=== PATIENT | female | born 1950 | race Caucasian/White ===

== ENCOUNTER 2024-04-19 01:14 | Outpatient (RCR) | payer MEDICARE, OTHER, SELFPAY ==
[2024-03-27] MEDS: Normal Saline Flush 10 ML SYR IVP (08:01)
[2024-03-27 08:27] LABS: Abs Immature Grans 0.11 10^3/uL (0.0-0.06); Absolute Basophil Count 0.07 10^3/uL (0.0-0.2); Absolute Eosinophil Count 0.16 10^3/uL (0.0-0.7); Absolute Lymphocyte Count 1.57 10^3/uL (1.2-3.4); Absolute Monocyte Count 0.67 10^3/uL (0.1-0.8); Absolute Neutrophil Count 5.27 10^3/uL (1.2-6.7); Basophils % 0.9 %; HCT 32.1 % (36.0-46.0); HGB 10.5 g/dL (11.2-15.7); Immature Grans % 1.4 %; MCH 30.1 pg (27.0-33.0); MCHC 32.7 % (32.0-36.0); MCV 92 fL (80-95); MPV 9.4 fL (8.0-11.0); Monocytes % 8.5 %; Neutrophils % 67.2 %; Platelet Count 302 10^3/uL (130-400); RBC 3.49 10^6/uL (3.93-5.22); RDW 13.4 % (11.7-14.6); RDW-SD 45.1 fL; WBC 7.85 10^3/uL (4.4-10.8)
[2024-03-27 09:06] LABS: ALT 41 U/L (14-59); AST 25 U/L (15-37); Albumin 2.9 g/dL (3.4-5.0); Alkaline Phosphatase 321 U/L (46-116); Anion Gap 5.9 mmol/L (3-11); BUN 12 mg/dL (7-18); Bilirubin, Total 0.5 mg/dL (0.2-1.0); CO2 29.1 mmol/L (21.0-32.0); CREATININE 0.9 mg/dL (0.55-1.02); Calcium 9.3 mg/dL (8.5-10.1); Chloride 103 mmol/L (98-107); Estimated GFR 67.92 (mL/min/1.73m2); Glucose 125 mg/dL (74-106); Potassium 4.2 mmol/L (3.5-5.1); Sodium 138 mmol/L (136-145); Total Protein 6.9 g/dL (6.4-8.2); Vitamin B12 1451 pg/mL (193-986)
[2024-03-27 22:31] LABS: CA 19-9 378 U/mL (<35)
[2024-03-29] MEDS: Normal Saline Flush 10 ML SYR IVP (12:11)
[2024-04-10] MEDS: Normal Saline Flush 10 ML SYR IVP (07:52)
[2024-04-10 08:34] LABS: Abs Immature Grans 0.01 10^3/uL (0.0-0.06); Absolute Basophil Count 0.02 10^3/uL (0.0-0.2); Absolute Eosinophil Count 0.24 10^3/uL (0.0-0.7); Absolute Lymphocyte Count 0.89 10^3/uL (1.2-3.4); Absolute Monocyte Count 0.38 10^3/uL (0.1-0.8); Absolute Neutrophil Count 1.48 10^3/uL (1.2-6.7); Basophils % 0.7 %; Eosinophils % 7.9 %; HCT 29.5 % (36.0-46.0); HGB 9.8 g/dL (11.2-15.7); Immature Grans % 0.3 %; Lymphocytes % 29.5 %; MCH 30.3 pg (27.0-33.0); MCHC 33.2 % (32.0-36.0); MCV 91 fL (80-95); MPV 10.3 fL (8.0-11.0); Monocytes % 12.6 %; Platelet Count 158 10^3/uL (130-400); RBC 3.23 10^6/uL (3.93-5.22); RDW 14.1 % (11.7-14.6); RDW-SD 46.1 fL; WBC 3.02 10^3/uL (4.4-10.8)
[2024-04-10 08:48] LABS: ALT 41 U/L (14-59); AST 20 U/L (15-37); Alkaline Phosphatase 180 U/L (46-116); Anion Gap 6.2 mmol/L (3-11); BUN 9 mg/dL (7-18); Bilirubin, Total 0.45 mg/dL (0.2-1.0); CO2 28.8 mmol/L (21.0-32.0); CREATININE 0.9 mg/dL (0.55-1.02); Calcium 9.1 mg/dL (8.5-10.1); Chloride 106 mmol/L (98-107); Glucose 115 mg/dL (74-106); Potassium 3.7 mmol/L (3.5-5.1); Sodium 141 mmol/L (136-145); Total Protein 6.4 g/dL (6.4-8.2)
[2024-04-10 20:05] LABS: CA 19-9 80 U/mL (<35)
[2024-04-17] MEDS: Normal Saline Flush 10 ML SYR IVP (08:21)
[2024-04-17 08:47] LABS: Abs Immature Grans 0.02 10^3/uL (0.0-0.06); Absolute Basophil Count 0.07 10^3/uL (0.0-0.2); Absolute Eosinophil Count 0.15 10^3/uL (0.0-0.7); Absolute Lymphocyte Count 1.21 10^3/uL (1.2-3.4); Absolute Monocyte Count 0.74 10^3/uL (0.1-0.8); Absolute Neutrophil Count 1.03 10^3/uL (1.2-6.7); Basophils % 2.2 %; Eosinophils % 4.7 %; HCT 30.6 % (36.0-46.0); HGB 10.1 g/dL (11.2-15.7); Immature Grans % 0.6 %; Lymphocytes % 37.6 %; MCH 30.9 pg (27.0-33.0); MCV 94 fL (80-95); MPV 10.8 fL (8.0-11.0); Neutrophils % 31.9 %; Platelet Count 211 10^3/uL (130-400); RBC 3.27 10^6/uL (3.93-5.22); RDW-SD 51.7 fL; WBC 3.22 10^3/uL (4.4-10.8)
[2024-04-17 09:05] LABS: ALT 28 U/L (14-59); AST 20 U/L (15-37); Alkaline Phosphatase 150 U/L (46-116); Anion Gap 7.1 mmol/L (3-11); BUN 10 mg/dL (7-18); Bilirubin, Total 0.36 mg/dL (0.2-1.0); CO2 28.9 mmol/L (21.0-32.0); CREATININE 0.9 mg/dL (0.55-1.02); Calcium 8.8 mg/dL (8.5-10.1); Chloride 106 mmol/L (98-107); Glucose 103 mg/dL (74-106); Potassium 3.5 mmol/L (3.5-5.1); Sodium 142 mmol/L (136-145); Total Protein 6.4 g/dL (6.4-8.2)
[2024-04-17 22:57] LABS: CA 19-9 45 U/mL (<35)
[2024-04-19] MEDS: Normal Saline Flush 10 ML SYR IVP (13:36)
== END 2024-04-19 23:59 | disposition home or self-care (01) ==
LOC: INF 01:14
PROVIDERS: PCP Family Medicine; Visit Provider Internal Medicine Hematology & Oncology
DX: C25.0 Malignant neoplasm of head of pancreas (principal); Z45.2 Encounter for adjustment and management of vascular access device
CPT/HCPCS: 36591; 80053; 96372; 96523; 82607; 85025; 86301; Q5108

== ENCOUNTER 2024-05-03 14:09 | Outpatient (RCR) | payer MEDICARE, OTHER, SELFPAY | END 2024-05-20 23:59 | disposition home or self-care (01) | LOC: INF 14:09 | PROVIDERS: PCP Family Medicine; Visit Provider Internal Medicine Hematology & Oncology | DX: C25.0 Malignant neoplasm of head of pancreas (principal); Z45.2 Encounter for adjustment and management of vascular access device | CPT/HCPCS: 96372; 96523; Q5108 ==

== ENCOUNTER 2024-05-17 00:16 | Outpatient (RCR) | payer MEDICARE, OTHER, SELFPAY ==
[2024-05-01] MEDS: Normal Saline Flush 10 ML SYR IVP (09:43)
[2024-05-01 09:54] LABS: Abs Immature Grans 0.75 10^3/uL (0.0-0.06); HGB 10.7 g/dL (11.2-15.7); MCH 30.4 pg (27.0-33.0); MCHC 32.4 % (32.0-36.0); MCV 94 fL (80-95); MPV 10.9 fL (8.0-11.0); Platelet Count 142 10^3/uL (130-400); RBC 3.52 10^6/uL (3.93-5.22); RDW 15.4 % (11.7-14.6); RDW-SD 52.4 fL; WBC 8.48 10^3/uL (4.4-10.8)
[2024-05-01 10:11] LABS: ALT 35 U/L (14-59); AST 24 U/L (15-37); Alkaline Phosphatase 160 U/L (46-116); BUN 10 mg/dL (7-18); Bilirubin, Total 0.34 mg/dL (0.2-1.0); CREATININE 0.8 mg/dL (0.55-1.02); Calcium 8.9 mg/dL (8.5-10.1); Chloride 104 mmol/L (98-107); Estimated GFR 77.75 (mL/min/1.73m2); Glucose 87 mg/dL (74-106); Potassium 3.7 mmol/L (3.5-5.1); Sodium 138 mmol/L (136-145); Total Protein 6.5 g/dL (6.4-8.2)
[2024-05-01 10:46] LABS: Absolute Basophil Count 0.08 10^3/uL (0.0-0.2); Absolute Eosinophil Count 0.17 10^3/uL (0.0-0.7); Absolute Lymphocyte Count 2.46 10^3/uL (1.2-3.4); Absolute Monocyte Count 0.59 10^3/uL (0.1-0.8); Absolute Neutrophil Count 4.49 10^3/uL (1.2-6.7); Atypical Lymphocytes % 6 %; Bands % 3 %
[2024-05-01 10:47] LABS: Diff Comment Manual Differential; Metamyelocytes % 4; Myelocytes % 4; Other Cells % 0; Promyelocytes % 0; RBC Morphology Normal
[2024-05-03] MEDS: Normal Saline Flush 10 ML SYR IVP (12:50)
[2024-05-04 10:06] LABS: CA 19-9 27 U/mL (<35)
[2024-05-15] MEDS: Normal Saline Flush 10 ML SYR IVP (09:56)
[2024-05-15 10:00] LABS: Absolute Eosinophil Count 0.13 10^3/uL (0.0-0.7); Absolute Lymphocyte Count 1.88 10^3/uL (1.2-3.4); Absolute Monocyte Count 1.11 10^3/uL (0.1-0.8); Absolute Neutrophil Count 7.33 10^3/uL (1.2-6.7); Basophils % 0.5 %; Eosinophils % 1.2 %; HCT 32.5 % (36.0-46.0); HGB 10.8 g/dL (11.2-15.7); Immature Grans % 4.5 %; Lymphocytes % 17.1 %; MCHC 33.2 % (32.0-36.0); MCV 93 fL (80-95); MPV 11.4 fL (8.0-11.0); Monocytes % 10.1 %; Neutrophils % 66.6 %; Platelet Count 148 10^3/uL (130-400); RBC 3.48 10^6/uL (3.93-5.22); RDW 16.1 % (11.7-14.6); RDW-SD 54.2 fL
[2024-05-15 10:02] LABS: Absolute Basophil Count 0.06 10^3/uL (0.0-0.2)
[2024-05-15 10:26] LABS: ALT 50 U/L (14-59); AST 27 U/L (15-37); Alkaline Phosphatase 197 U/L (46-116); Anion Gap 8.4 mmol/L (3-11); BUN 8 mg/dL (7-18); Bilirubin, Total 0.29 mg/dL (0.2-1.0); CO2 28.6 mmol/L (21.0-32.0); CREATININE 0.9 mg/dL (0.55-1.02); Calcium 8.9 mg/dL (8.5-10.1); Chloride 104 mmol/L (98-107); Glucose 99 mg/dL (74-106); Potassium 3.3 mmol/L (3.5-5.1); Sodium 141 mmol/L (136-145); Total Protein 6.3 g/dL (6.4-8.2)
[2024-05-17] MEDS: Normal Saline Flush 10 ML SYR IVP (14:15)
[2024-05-18 13:43] LABS: CA 19-9 7 U/mL (<35)
== END 2024-05-20 23:59 | disposition home or self-care (01) ==
LOC: INF 00:16
PROVIDERS: PCP Family Medicine; Visit Provider Internal Medicine Hematology & Oncology
DX: C25.0 Malignant neoplasm of head of pancreas (principal); Z45.2 Encounter for adjustment and management of vascular access device
CPT/HCPCS: 36591; 80053; 96372; 96523; 85025; 86301; Q5108

== ENCOUNTER 2024-06-14 00:31 | Outpatient (RCR) | payer MEDICARE, OTHER, SELFPAY ==
[2024-05-29] MEDS: Normal Saline Flush 10 ML SYR IVP (08:09)
[2024-05-29 08:17] LABS: Abs Immature Grans 1.04 10^3/uL (0.0-0.06); Absolute Basophil Count 0.02 10^3/uL (0.0-0.2); Absolute Eosinophil Count 0.11 10^3/uL (0.0-0.7); Absolute Lymphocyte Count 1.81 10^3/uL (1.2-3.4); Absolute Monocyte Count 1.04 10^3/uL (0.1-0.8); Absolute Neutrophil Count 7.24 10^3/uL (1.2-6.7); Basophils % 0.2 %; HCT 33.6 % (36.0-46.0); HGB 10.7 g/dL (11.2-15.7); Immature Grans % 9.2 %; Lymphocytes % 16.1 %; MCHC 31.8 % (32.0-36.0); MCV 97 fL (80-95); MPV 11.1 fL (8.0-11.0); Monocytes % 9.2 %; Neutrophils % 64.3 %; Nucleated RBC 0.3 % (0.0-0.3); RBC 3.45 10^6/uL (3.93-5.22); RDW 16.3 % (11.7-14.6); RDW-SD 57.6 fL; WBC 11.26 10^3/uL (4.4-10.8)
[2024-05-29 08:37] LABS: ALT 45 U/L (14-59); AST 29 U/L (15-37); Albumin 3.1 g/dL (3.4-5.0); Alkaline Phosphatase 222 U/L (46-116); BUN 7 mg/dL (7-18); Bilirubin, Total 0.24 mg/dL (0.2-1.0); CREATININE 0.9 mg/dL (0.55-1.02); Chloride 106 mmol/L (98-107); Glucose 104 mg/dL (74-106); Potassium 3.4 mmol/L (3.5-5.1); Sodium 142 mmol/L (136-145); Total Protein 6.1 g/dL (6.4-8.2)
[2024-05-29 08:52] LABS: Diff Comment Agrees w/ Instrument; Platelet Count 138 10^3/uL (130-400); RBC Morphology Normal
[2024-05-31] MEDS: Normal Saline Flush 10 ML SYR IVP (12:18)
[2024-06-01 11:11] LABS: CA 19-9 8 U/mL (<35)
[2024-06-12] MEDS: Normal Saline Flush 10 ML SYR IVP (08:59)
[2024-06-12 09:24] LABS: Abs Immature Grans 0.82 10^3/uL (0.0-0.06); HCT 32.2 % (36.0-46.0); HGB 10.4 g/dL (11.2-15.7); MCH 31.5 pg (27.0-33.0); MCHC 32.3 % (32.0-36.0); MCV 98 fL (80-95); MPV 10.9 fL (8.0-11.0); Nucleated RBC 0.3 % (0.0-0.3); Platelet Count 130 10^3/uL (130-400); RDW 16.6 % (11.7-14.6); RDW-SD 59.2 fL; WBC 11.87 10^3/uL (4.4-10.8)
[2024-06-12 09:38] LABS: ALT 42 U/L (14-59); AST 27 U/L (15-37); Alkaline Phosphatase 242 U/L (46-116); Anion Gap 7.6 mmol/L (3-11); BUN 9 mg/dL (7-18); Bilirubin, Total 0.27 mg/dL (0.2-1.0); CO2 28.4 mmol/L (21.0-32.0); CREATININE 0.8 mg/dL (0.55-1.02); Calcium 9.2 mg/dL (8.5-10.1); Chloride 105 mmol/L (98-107); Estimated GFR 77.75 (mL/min/1.73m2); Glucose 114 mg/dL (74-106); Potassium 3.2 mmol/L (3.5-5.1); Sodium 141 mmol/L (136-145); Total Protein 6.3 g/dL (6.4-8.2)
[2024-06-12 09:49] LABS: Absolute Eosinophil Count 0.24 10^3/uL (0.0-0.7); Absolute Lymphocyte Count 2.26 10^3/uL (1.2-3.4); Absolute Monocyte Count 0.59 10^3/uL (0.1-0.8); Absolute Neutrophil Count 8.19 10^3/uL (1.2-6.7); Metamyelocytes % 2; Myelocytes % 3
[2024-06-12 09:50] LABS: Diff Comment Manual Differential; RBC Morphology Normal
[2024-06-12 20:40] LABS: CA 19-9 11 U/mL (<35)
[2024-06-14] MEDS: Normal Saline Flush 10 ML SYR IVP (13:04)
== END 2024-06-20 23:59 | disposition home or self-care (01) ==
LOC: INF 00:31
PROVIDERS: PCP Family Medicine; Visit Provider Internal Medicine Hematology & Oncology
DX: C25.0 Malignant neoplasm of head of pancreas (principal); Z45.2 Encounter for adjustment and management of vascular access device; D70.1 Agranulocytosis secondary to cancer chemotherapy
CPT/HCPCS: 36591; 80053; 96372; 96523; 85025; 86301; Q5108

== ENCOUNTER 2024-07-12 00:07 | Outpatient (RCR) | payer MEDICARE, OTHER, SELFPAY ==
[2024-06-26] MEDS: Normal Saline Flush 10 ML SYR IVP (08:08)
[2024-06-26 08:33] LABS: Abs Immature Grans 0.47 10^3/uL (0.0-0.06); Absolute Basophil Count 0.06 10^3/uL (0.0-0.2); Absolute Eosinophil Count 0.07 10^3/uL (0.0-0.7); Absolute Lymphocyte Count 1.59 10^3/uL (1.2-3.4); Absolute Monocyte Count 0.95 10^3/uL (0.1-0.8); Absolute Neutrophil Count 6.66 10^3/uL (1.2-6.7); Basophils % 0.6 %; Eosinophils % 0.7 %; HCT 33.8 % (36.0-46.0); HGB 10.8 g/dL (11.2-15.7); Immature Grans % 4.8 %; Lymphocytes % 16.2 %; MCH 32.2 pg (27.0-33.0); MCV 101 fL (80-95); MPV 10.9 fL (8.0-11.0); Monocytes % 9.7 %; Platelet Count 145 10^3/uL (130-400); RBC 3.35 10^6/uL (3.93-5.22); RDW 16.2 % (11.7-14.6); RDW-SD 59.5 fL
[2024-06-26 08:52] LABS: ALT 182 U/L (14-59); AST 43 U/L (15-37); Albumin 3.2 g/dL (3.4-5.0); Alkaline Phosphatase 440 U/L (46-116); Anion Gap 4.5 mmol/L (3-11); BUN 12 mg/dL (7-18); Bilirubin, Total 0.26 mg/dL (0.2-1.0); CO2 28.5 mmol/L (21.0-32.0); CREATININE 0.9 mg/dL (0.55-1.02); Calcium 9.6 mg/dL (8.5-10.1); Chloride 101 mmol/L (98-107); Glucose 98 mg/dL (74-106); Potassium 3.9 mmol/L (3.5-5.1); Sodium 134 mmol/L (136-145); Total Protein 6.8 g/dL (6.4-8.2)
[2024-06-26 22:14] LABS: CA 19-9 10 U/mL (<35)
[2024-07-10 09:09] LABS: Abs Immature Grans 0.03 10^3/uL (0.0-0.06); Absolute Basophil Count 0.03 10^3/uL (0.0-0.2); Absolute Eosinophil Count 0.07 10^3/uL (0.0-0.7); Absolute Lymphocyte Count 1.03 10^3/uL (1.2-3.4); Absolute Monocyte Count 0.64 10^3/uL (0.1-0.8); Absolute Neutrophil Count 2.86 10^3/uL (1.2-6.7); Basophils % 0.6 %; Eosinophils % 1.5 %; Immature Grans % 0.6 %; Lymphocytes % 22.1 %; MCH 32.2 pg (27.0-33.0); MCHC 31.3 % (32.0-36.0); MCV 103 fL (80-95); MPV 10.8 fL (8.0-11.0); Monocytes % 13.7 %; Neutrophils % 61.5 %; Platelet Count 141 10^3/uL (130-400); RBC 3.11 10^6/uL (3.93-5.22); RDW 15.3 % (11.7-14.6); RDW-SD 57.7 fL; WBC 4.66 10^3/uL (4.4-10.8)
[2024-07-10] MEDS: Normal Saline Flush 10 ML SYR IVP (09:13)
[2024-07-10 09:32] LABS: ALT 38 U/L (14-59); AST 27 U/L (15-37); Albumin 2.9 g/dL (3.4-5.0); Alkaline Phosphatase 249 U/L (46-116); Anion Gap 7.1 mmol/L (3-11); BUN 15 mg/dL (7-18); Bilirubin, Total 0.28 mg/dL (0.2-1.0); CO2 27.9 mmol/L (21.0-32.0); CREATININE 0.8 mg/dL (0.55-1.02); Chloride 107 mmol/L (98-107); Estimated GFR 77.75 (mL/min/1.73m2); Glucose 66 mg/dL (74-106); Potassium 4.3 mmol/L (3.5-5.1); Sodium 142 mmol/L (136-145); Total Protein 6.3 g/dL (6.4-8.2)
[2024-07-10 20:27] LABS: CA 19-9 10 U/mL (<35)
[2024-07-12] MEDS: Normal Saline Flush 10 ML SYR IVP (13:10)
== END 2024-07-20 23:59 | disposition home or self-care (01) ==
LOC: INF 00:07
PROVIDERS: PCP Family Medicine; Visit Provider Internal Medicine Hematology & Oncology
DX: C25.0 Malignant neoplasm of head of pancreas (principal); D70.1 Agranulocytosis secondary to cancer chemotherapy
CPT/HCPCS: 36591; 80053; 96372; 96523; 85025; 86301; Q5108

== ENCOUNTER 2024-07-26 | Outpatient (RCR) | payer MEDICARE, OTHER, SELFPAY ==
[2024-07-26] MEDS: Normal Saline Flush 10 ML SYR IVP (14:49)
== END 2024-08-20 23:59 | disposition home or self-care (01) ==
LOC: INF
PROVIDERS: PCP Family Medicine; Visit Provider Internal Medicine Hematology & Oncology
DX: D70.1 Agranulocytosis secondary to cancer chemotherapy (principal); C25.0 Malignant neoplasm of head of pancreas
CPT/HCPCS: 96372; 96523; Q5108